=== PATIENT | male | born 2000 | race Caucasian/White ===

== ENCOUNTER 2025-05-16 13:05 | Emergency (ER) | payer OTHER ==
[~2025-05-16] VITALS: Ht 182.9 cm; Wt 79.5 kg
[2025-05-16] MEDS: MECLIZINE 25 MG TABLET PO ONE (17:45)
[2025-05-16] MEDS: NS (Normal Saline) 0.9% 1,000 ML IV ONE (17:45)
[2025-05-16 17:52] LABS: BASO # 0.1 10^3/uL (0.0-0.2); BASO % 0.6 % (0.0-1.0); EOS # 0.1 10^3/uL (0.0-0.5); EOS % 1.1 % (0.0-3.0); LYMPH # 2.3 10^3/uL (1.5-5.0); LYMPH % 26.4 % (24.0-44.0); MONO # 1.0 10^3/uL (0.0-0.8); MONO % 11.8 % (2.0-8.0); NEUTROPHILS # 5.1 10^3/uL (1.5-8.5); NEUTROPHILS % 59.7 % (36.0-66.0); PLATELET COUNT, AUTOMATED 347 10^3/uL (150-450)
[2025-05-16 18:17] LABS: CALCIUM LEVEL 9.5 MG/DL (8.5-10.1); CARBON DIOXIDE LEVEL 27 MMOL/L (20-31); CHLORIDE LEVEL 100 MMOL/L (98-107); CK-MB VALUE MASS 4.0 NG/ML (<3.6); CPK CREATINE PHOSPHOKINASE 226 U/L (46-171); CREATININE FOR GFR 0.95 MG/DL (0.70-1.30); GLOMERULAR FILTRATION RATE > 90.0 (>60); MAGNESIUM LEVEL 2.0 MG/DL (1.8-2.4); MB/CK RELATIVE INDEX 1.76 (< OR =4); POTASSIUM SERUM 3.9 MMOL/L (3.5-5.1); SODIUM LEVEL 139 MMOL/L (136-145)
[2025-05-16 19:07] VITALS: BP 125/75; O2SAT 100
[2025-05-16] MEDS ORDERED: MECL-209 PO (19:33)
[2025-05-16 19:45] VITALS: TEMP 97.9
== END 2025-05-16 19:45 | disposition home or self-care (01) ==
LOC: EDBD 13:05 → M ED 13:05
DX: H81.4 Vertigo of central origin (principal); F10.10 Alcohol abuse, uncomplicated; Z91.048 Other nonmedicinal substance allergy status; Z79.899 Other long term (current) drug therapy